=== PATIENT | male | born 1980 | race Caucasian/White ===

== ENCOUNTER 2018-03-21 14:43 | Emergency (ER) | payer OTHER ==
[~2018-03-21] VITALS: Ht 182.9 cm; Wt 84.4 kg
[2018-03-21 14:43] VITALS: BP_SYST 149
--- NOTE | 2018-03-21 14:43 | NUR ---
BROUGHT TO BED #2 AND TRIAGED. REPORT GIVEN TO YUMI
--- NOTE | 2018-03-21 15:00 | NUR ---
Patient presents to the ED for sudden onset of laceration to right side of scalp today. Patient states he hit his head on the apparatus door at work. No LOC. Patient states he received Tdap vaccination within the last 3 years. Otherwise, patient denies neck pain, back pain, abdominal pain, chest pain, fever, chills, nausea, vomiting, diarrhea or any other complaints.
--- NOTE | 2018-03-21 15:05 | NUR ---
ER at bedside examining patient.
--- NOTE | 2018-03-21 15:35 | NUR ---
Patient has a 1.5 cm laceration to right top of head. Dr. Kinney applied agusto and dermabond using sterile technique. Edges well approximated. Site cleansed with normal saline. No bleeding noted. Pt tolerated well.
--- NOTE | 2018-03-21 15:55 | NUR ---
Patient given written and verbal discharge instructions and verbalizes understanding. ER MD discussed with patient the results and treatment provided. Patient in stable condition. ID arm band removed. No Rx given. Patient educated on pain management and to follow up with PMD. Pain Scale 0/10. Opportunity for questions provided and answered. Medication side effect fact sheet provided.
[2018-03-21 16:29] VITALS: BP_SYST 149
== END 2018-03-21 15:55 | disposition home or self-care (01) ==
LOC: SED 14:43
DX: S01.01XA Laceration without foreign body of scalp, initial encounter (principal); W22.8XXA Striking against or struck by other objects, initial encounter; Y93.89 Activity, other specified; Y92.69 Other specified industrial and construction area as the place of occurrence of the external cause; Y99.8 Other external cause status
CPT/HCPCS: 99283